=== PATIENT | female | born 1950 | race Caucasian/White ===

== ENCOUNTER → 2019-12-02 14:07 | Outpatient (CLI) | payer MEDICARE, SELFPAY ==
--- NOTE | ~2019-12-02 | DEXA_ITS ---
Bone Density Report Name: Fanny Greer Age: 69 Sex: Female Ethnicity: White Date of : 1950 Indication: osteopenia; monitoring treatment; prior fracture; postmenopausal Referring Provider: BETO, CHARLES Study: Bone densitometry was performed. Exam Date: December 02, 2019 Accession number: [id number] Bone Density: Region BMD T-score Z-score Classification AP Spine (L1-L4) 0.855 -1.7 0.3 Osteopenia Femoral Neck (Left) 0.681 -1.5 0.3 Osteopenia Total Hip (Left) 0.861 -0.7 0.8 Normal Femoral Neck (Right) 0.655 -1.7 0.0 Osteopenia Total Hip (Right) 0.881 -0.5 1.0 Normal Total Hip Mean 0.871 -0.6 0.9 Normal World Health Organization criteria for BMD impression classify patients as: Normal (T-score at or above -1.0), Osteopenia (T-score between -1.0 and -2.5), or Osteoporosis (T-score at or below -2.5). 10-year Fracture Risk: FRAX not reported because: Treated for osteoporosis Previous Exams: Region Exam Age BMD T-score BMD Change BMD Change Date g/cm2 vs Baseline vs Previous AP Spine(L1-L4) 12/02/2019 69 0.855 -1.7 -0.004 -0.001 11/13/2017 67 0.857 -1.7 -0.003 -0.003 11/02/2015 65 0.859 -1.7 Total Hip(Left) 12/02/2019 69 0.861 -0.7 0.035* 0.018 11/13/2017 67 0.843 -0.8 0.017 0.017 11/02/2015 65 0.826 -1.0 Total Hip(Right) 12/02/2019 69 0.881 -0.5 0.028* 0.008 11/13/2017 67 0.873 -0.6 0.020 0.020 11/02/2015 65 0.852 -0.7 *Denotes significance at 95% confidence level, LSC for AP Spine = 0.022 g/cm2, LSC for Total Hip = 0.027 g/cm2 Clinical Information Provided by Patient: Has had a low trauma fracture Is being treated for osteoporosis Has used the following medications: Fosamax (i.e. alendronate), Vitamin D, Calcium Patient maximum height was 62 Menopause Age: 45 Drinks caffeinated beverages Onset of menses at age 12 Number of children 2 Impression: The patient has low bone mass, based on the Total Spine T-score. The patient has risk factors, including: previous fracture. No significant bone loss was observed. Discussion: PATIENT UNDER TREATMENT WITH NO SIGNIFICANT BMD LOSS SINCE LAST EXAM. In an untreated patient, BMD typically declines with age. A lack of decline or gain is usually a sign that treatment is efficacious and fracture risk is reduced. It is important to ask patients
--- NOTE | ~2019-12-02 | MM_ITS ---
EXAMINATION: MM screening ailin BI w franchesca HISTORY: Screening mammogram TECHNIQUE: Craniocaudal and mediolateral oblique 3-D tomosynthesis images were obtained and synthetic 2-D images were generated. CAD analysis was submitted and interpreted. COMPARISON: No prior mammogram is available for comparison at this institution. BREAST PARENCHYMAL COMPOSITION: FINDINGS: There is a 1 cm mass suggested in the upper mid right breast. Diagnostic right mammogram an d right breast ultrasound examination are recommended. Bilateral benign calcifications are noted. Other than the suspected upper mid right breast mass, there is no evidence of suspicious mass, calcif ication, or architectural distortion to suggest malignancy in either breast. There has been no suspic ious interval change. IMPRESSION: 1. Suspected 1 cm mass in upper mid right breast 2. Diagnostic right mammogram and right breast ultrasound examination are recommended. BI-RADS Category 0: Incomplete: Needs additional imaging evaluation. Reviewed, dictated and finalized at location A. ER CONSULTANT IMPRESSION: 1. Suspected 1 cm mass in upper mid right breast 2. Diagnostic right mammogram and right breast ultrasound examination are recom mended. BI-RADS Category 0: Incomplete: Needs additional imaging evaluation.
== END ==
PROVIDERS: PCP Family Medicine; Visit Provider Nurse Practitioner
DX: Z12.31 Encounter for screening mammogram for malignant neoplasm of breast (principal); M85.88 Other specified disorders of bone density and structure, other site; N63.12 Unspecified lump in the right breast, upper inner quadrant
CPT/HCPCS: 77063; 77067; 77080

== ENCOUNTER → 2019-12-16 08:58 | Outpatient (CLI) | payer MEDICARE, SELFPAY ==
--- NOTE | ~2019-12-16 | MMUS_ITS ---
EXAMINATION: MM diagnostic mammo unilat RT, US breast RT limited HISTORY: 1 cm mass suggested in the upper mid right breast on 12/02/2019 screening mammogram TECHNIQUE: Additional 3-D tomosynthesis images of the right breast were performed and synthetic 2-D i mages were generated. CAD analysis was submitted and interpreted. High resolution upper inner and upp er outer right breast ultrasound was performed. COMPARISON: 12/02/2019 bilateral digital screening mammogram FINDINGS: MAMMOGRAPHIC FINDINGS: There is heterogeneous stroma in the upper mid right breast but no definite reproducible mass or any architectural distortion or any malignant calcification, skin thickening or retraction is evident. ULTRASOUND: There is no suspicious mass or shadowing, cyst or other significant sonographic finding in the upper half of the right breast. IMPRESSION: 1. No mammographic evidence of malignancy 2. Routine mammographic screening is recommended. BI-RADS Category 1: Negative Reviewed, dictated and finalized at location A. R HELPER IMPRESSION: 1. No mammographic evidence of malignancy 2. Routine mammographic screening is recommended. BI-RADS Category 1: Negative
== END ==
PROVIDERS: PCP Family Medicine; Visit Provider Obstetrics & Gynecology Gynecology
DX: R92.8 Other abnormal and inconclusive findings on diagnostic imaging of breast (principal)
CPT/HCPCS: 76642; 77065

== ENCOUNTER 2020-03-12 09:31 | Outpatient (CLI) | payer MEDICARE, SELFPAY ==
--- NOTE | ~2020-03-12 | US_ITS ---
EXAMINATION: US carotid duplex BI DATE: 03/12/2020 10:08 INDICATION: Carotid bruit. History of subclavian artery stenosis. TECHNIQUE: Grayscale, color Doppler, and pulsed Doppler images of the cervical carotid arteries were obtained. The degree of vessel stenosis is placed in one of the following categories: normal, <50%, 5 0-69%, >=70% but less than near-occlusion, near-occlusion, or total occlusion. Note that percent sten osis relative to normal distal artery lumen diameter is indirectly measured from velocity measurement s as described by Pradip, et al. Radiology 2003; 229:340-346. Notes: Normal: Peak systolic velocity <125 centimeters/sec and no plaque <50%. Peak systolic velocity <125 ( EDV <40; ICA/CCA PSV ratio <2.0; used these factors only a tandem lesions or low cardiac output or co ntralateral disease) 50-69 %: PSV 125-230 (EDV 40-100; ratio 2-4) >= 70% but less than near occlusion: PSV greater than 230 (EDV > 100; ratio> 4.0) Near Occlusion: PSV that is variable; markedly narrowed lumen Occlusion: Absent flow on color/spectral Doppler and no lumen on valles scale. COMPARISON: Ultrasound dated 03/30/2018 FINDINGS: RIGHT: The right common carotid artery (CCA) peak systolic velocity (PSV) is 89 cm/s. The right internal car otid artery (ICA) PSV is 68 cm/s. The right ICA end-diastolic velocity (EDV) is 21 cm/s. The right IC A/CCA PSV ratio is 0.76. The external carotid artery (ECA) PSV is 73 cm/s. There is antegrade flow in the right vertebral artery. LEFT: The left CCA PSV is 85 cm/s. The left ICA PSV is 62 cm/s. The left ICA EDV is 22 cm/s. The left ICA/C CA PSV ratio is 0.74. The ECA PSV is 81 cm/s. There is too and fro flow in the left vertebral artery . IMPRESSION: 1. Less than 50% stenosis in the right internal carotid artery by sonographic criteria. 2. Less than 50% stenosis in the left internal carotid artery by sonographic criteria. 3: To-and-fro flow in the left vertebral artery which can be associated with subclavian steal syndrom e. Reviewed, dictated and finalized at location A. IMPRESSION: 1. Less than 50% stenosis in the right internal carotid artery by sonographic c riteria. 2. Less than 50% stenosis in the left internal carotid artery by sonographic cr iteria. 3: To-and-fro flow in the left vertebral artery which can be associated with smalls bclavian steal syndrome.
== END 2020-03-12 09:32 | disposition home or self-care (01) ==
LOC: ANHIMG 09:34
PROVIDERS: PCP Family Medicine; Visit Provider Internal Medicine Cardiovascular Disease
DX: I73.9 Peripheral vascular disease, unspecified (principal); I77.1 Stricture of artery; R09.89 Other specified symptoms and signs involving the circulatory and respiratory systems; I65.23 Occlusion and stenosis of bilateral carotid arteries
CPT/HCPCS: 93880

== ENCOUNTER → 2021-02-18 14:58 | Outpatient (CLI) | payer MEDICARE, SELFPAY ==
--- NOTE | ~2021-02-18 | MM_ITS ---
EXAMINATION: MM screening [facility] BI w franchesca HISTORY: Screening TECHNIQUE: Craniocaudal and mediolateral oblique 3-D tomosynthesis images were obtained and synthetic 2-D images were generated. CAD analysis was submitted and interpreted. COMPARISON: Comparison to multiple prior studies sequentially, with oldest reviewed study dated 06/2018. BREAST PARENCHYMAL COMPOSITION: There are scattered areas of fibroglandular density. FINDINGS: There is no evidence of suspicious mass, calcification, or architectural distortion to sugg est malignancy in either breast. There has been no suspicious interval change. IMPRESSION: 1. No mammographic evidence of malignancy. 2. Recommend routine screening mammography in one year. BI-RADS Category 1: Negative Reviewed, dictated and finalized at location A.
== END ==
PROVIDERS: Visit Provider Nurse Practitioner
DX: Z12.31 Encounter for screening mammogram for malignant neoplasm of breast (principal)
CPT/HCPCS: 77063; 77067

== ENCOUNTER → 2021-03-13 01:46 | Outpatient (CLI) | payer MEDICARE, SELFPAY ==
[2021-03-14 14:52] LABS: SARS-CoV-2 RNA PCR Negative
== END ==
PROVIDERS: Visit Provider Internal Medicine Gastroenterology
DX: Z01.812 Encounter for preprocedural laboratory examination (principal); Z20.822 Contact with and (suspected) exposure to COVID-19
CPT/HCPCS: C9803; U0003; U0005

== ENCOUNTER 2021-03-16 01:59 | Day surgery (SDC) | payer MEDICARE, SELFPAY ==
[2021-03-05 13:46] VITALS: BMI 26.2
[2021-03-16 11:11] VITALS: BP 135/62; PULSE 72; RESP 16; TEMP 36.7; O2SAT 98; BMI 26.2
[2021-03-16] MEDS: LACTATED RINGERS 1,000 ML 150 ML IV CONT (11:14)
--- NOTE | 2021-03-16 11:21 | WPDANESEPPF ---
Anes - Initial Pre Proc Eval Procedure: Operation Date: 03/16/21 13:00 Proposed Procedures p Esophagogastroduodenoscopy & Screening Colonoscopy - Ronald Condon MD Date/Time: 03/16/21 11:21 Surgeon: Ronald Condon MD Pre Op Diagnosis: neoplasm screening, GERD Patient Data Age: 70 Gender: F Height: 1.57 m Weight: 65.2 kg Last Vital Signs Temp 36.7 C 03/16/21 11:11 Pulse 72 03/16/21 11:11 Resp 16 03/16/21 11:11 BP 135/62 03/16/21 11:11 Pulse Ox 98 03/16/21 11:11 Allergies Allergy/AdvReac Type Severity Reaction Status Date / Time Penicillins Allergy Mild rash and Verified 03/16/21 11:10 swelling Sulfa (Sulfonamide Allergy Mild rash and Verified 03/16/21 11:10 Antibiotics) swelling sulfamethizole Allergy Mild Rash Verified 03/16/21 11:10 trimethoprim Allergy Mild Rash Verified 03/16/21 11:10 Home Medications Medication Instructions Recorded Confirmed Type aspirin 81 mg tablet,delayed 81 mg PO DAILY 09/10/19 03/05/21 History release atorvastatin 40 mg tablet 40 mg PO DAILY 09/10/19 03/05/21 History calcium carbonate 500 mg calcium 500 mg PO DAILY 09/10/19 03/05/21 History (1,250 mg) tablet carvedilol 3.125 mg tablet 3.125 mg PO Q12H 09/10/19 03/05/21 History cholecalciferol (vitamin D3) 125 5,000 unit PO DAILY 09/10/19 03/05/21 History mcg (5,000 unit) tablet montelukast 10 mg tablet 10 mg PO QPM #90 tablet 09/10/19 03/05/21 Rx fluoxetine 20 mg capsule 20 mg PO DAILY #90 cap 10/06/20 03/05/21 Rx ibandronate 150 mg tablet 150 mg PO MONTHLY 10/06/20 03/05/21 History famotidine [Pepcid] 40 mg PO DAILY 03/05/21 03/05/21 History Patient hx anesthesia problems: none Family hx anesthesia problems: none PMFSH Past Medical History Medical History Age-related nuclear cataract of both eyes CAD in [place] artery Choking GERD (gastroesophageal reflux disease) History of MA (myocardial infarction) 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 Mixed hyperlipidemia PAD (peripheral artery disease) Stenosis of left subclavian artery Surgical History Surgical History Stented coronary artery Family History Family History Father Hypertension Family history of chronic obstructive pulmonary disease Sibling Hypertension Family history of arthritis Family history of heart disease in male family member before age 55 Mother Acute myocardial infarction Social History Social History (Updated 10/06/20 @ 09:14 by Linette Winchester) Social History: Smoking status: Never smoker Second hand tobacco smoke exposure: No Alcohol intake: current Substance use: never Substance use type: does not use Living arrangements: with family Gender identity (if verbalized by the patient): Female Sexual Orientation (if Verbalized by the Patient): Straight or Heterosexual Spiritual care concerns: No Anes - Eval Final PreProcedure Day of Procedure 03/16/21 11:21 Patient weight: overweight Heart: regular rate and rhythm Lungs: clear to auscultation and normal air movement Airway: Mallampati scale Neurological: alert and oriented Last oral intake: >/= 8 hours ASA classification: III Emergent: no Anesthetic plan: proceed Anesthesia type and monitoring: general GIVS and standard monitoring Informed Consent: The patient's anesthetic plan and its attendant risks and benefits were discussed with the patient/family/POA. Questions were solicited and answers provided to the satisfaction of the patient/family/POA.
--- NOTE | 2021-03-16 11:28 | PM.HPGS ---
History of Present Illness History of Present Illness Consent: Risks, benefits, and alternatives have been discussed and questions answered. Patient agrees to proceed with procedure. Chief complaint: neoplasm screening, GERD Narrative: Fanny Greer is a 70 year old female with gerdi, also due to have colonoscopy Review of Systems Constitutional: Constitutional: Denies headache(s) and Denies weakness Eyes: Eyes: Denies blurry vision ENT: Reports Normal hearing present, Denies headache(s) and Denies neck pain Cardiovascular: Cardiovascular: Denies chest pain and Denies dyspnea Respiratory: Respiratory: Denies dyspnea Gastrointestinal: Gastrointestinal: Reports no additional gastrointestinal complaints Genitourinary: Genitourinary: Denies dysuria Musculoskeletal: Musculoskeletal: Denies neck pain Integumentary/Breasts: Skin/Breast: Denies dry skin Neurologic: Reports Normal hearing present, Denies headache(s) and Denies weakness Psychiatric: Psychiatric: Denies anxiety Endocrine: Endocrine: Denies change in body appearance Hematologic/Lymphatic: Hematologic/Lymphatic: Denies easy bleeding Allergic/Immunologic: Allergic/Immunologic: Denies urticaria PMFSH Past Medical History Medical History Age-related nuclear cataract of both eyes CAD in [place] artery Choking GERD (gastroesophageal reflux disease) History of [place] (myocardial infarction) FDC current use of antithrombotics/antiplatelets Mixed hyperlipidemia PAD (peripheral artery disease) Stenosis of left subclavian artery Surgical History Surgical History Stented coronary artery Family History Family History Father Hypertension Family history of chronic obstructive pulmonary disease Sibling Hypertension Family history of arthritis Family history of heart disease in male family member before age 55 Mother Acute myocardial infarction Social History Social History (Updated 10/06/20 @ 09:14 by Linette Winchester) Social History: Smoking status: Never smoker Second hand tobacco smoke exposure: No Alcohol intake: current Substance use: never Substance use type: does not use Living arrangements: with family Gender identity (if verbalized by the patient): Female Sexual Orientation (if Verbalized by the Patient): Straight or Heterosexual Spiritual care concerns: No Meds Home Medications and Allergies Home Medications Medication Instructions Recorded Confirmed Type aspirin 81 mg tablet,delayed 81 mg PO DAILY 09/10/19 03/05/21 History release atorvastatin 40 mg tablet 40 mg PO DAILY 09/10/19 03/05/21 History calcium carbonate 500 mg calcium 500 mg PO DAILY 09/10/19 03/05/21 History (1,250 mg) tablet carvedilol 3.125 mg tablet 3.125 mg PO Q12H 09/10/19 03/05/21 History cholecalciferol (vitamin D3) 125 5,000 unit PO DAILY 09/10/19 03/05/21 History mcg (5,000 unit) tablet montelukast 10 mg tablet 10 mg PO QPM #90 tablet 09/10/19 03/05/21 Rx fluoxetine 20 mg capsule 20 mg PO DAILY #90 cap 10/06/20 03/05/21 Rx ibandronate 150 mg tablet 150 mg PO MONTHLY 10/06/20 03/05/21 History famotidine [Pepcid] 40 mg PO DAILY 03/05/21 03/05/21 History Allergies Allergy/AdvReac Type Severity Reaction Status Date / Time Penicillins Allergy Mild rash and Verified 03/16/21 11:10 swelling Sulfa (Sulfonamide Allergy Mild rash and Verified 03/16/21 11:10 Antibiotics) swelling sulfamethizole Allergy Mild Rash Verified 03/16/21 11:10 trimethoprim Allergy Mild Rash Verified 03/16/21 11:10 Vital Signs Vital Signs - 24 hr 03/16/21 11:11 Temperature 98.1 F Pulse Rate 72 Respiratory Rate 16 Blood Pressure 135/62 Pulse Oximetry 98 Exam Const: General: comfortable and no acute distress HENMT: General nose exam: Normal nares present Eyes
[2021-03-16 11:57] VITALS: BP 107/62; PULSE 72; RESP 16; O2SAT 97
[2021-03-16 12:07] VITALS: BP 103/56; PULSE 66; RESP 16; O2SAT 100
[2021-03-16 12:14] VITALS: BP 114/67; PULSE 66; RESP 16; O2SAT 100
== END 2021-03-16 12:25 | disposition home or self-care (01) ==
PROVIDERS: PCP Family Medicine; Visit Provider Internal Medicine Gastroenterology
PROC: 0DJ08ZZ Inspection of Upper Intestinal Tract, Via Natural or Artificial Opening Endoscopic (ICD-10-PCS; CPT 43235; principal; 2021-03-16 13:00)
DX: Z12.11 Encounter for screening for malignant neoplasm of colon (principal); D12.2 Benign neoplasm of ascending colon; K64.8 Other hemorrhoids; K57.30 Diverticulosis of large intestine without perforation or abscess without bleeding; K21.00 Gastro-esophageal reflux disease with esophagitis, without bleeding; K29.50 Unspecified chronic gastritis without bleeding; E78.2 Mixed hyperlipidemia; I25.2 Old myocardial infarction; I73.9 Peripheral vascular disease, unspecified; K21.9 Gastro-esophageal reflux disease without esophagitis; I25.10 Atherosclerotic heart disease of native coronary artery without angina pectoris; Z95.5 Presence of coronary angioplasty implant and graft; Z79.02 Long term (current) use of antithrombotics/antiplatelets; Z79.82 Long term (current) use of aspirin
CPT/HCPCS: 45385; 43239; 87081; 88305; J2001; J2704; J7120

== ENCOUNTER 2021-06-01 10:22 | Outpatient (CLI) | payer MEDICARE, SELFPAY ==
--- NOTE | ~2021-06-01 | US_ITS ---
EXAMINATION: US carotid duplex BI DATE: 06/01/2021 11:02 INDICATION: Left carotid bruit. Previous endarterectomy. TECHNIQUE: Grayscale, color Doppler, and pulsed Doppler images of the cervical carotid arteries were obtained. The degree of vessel stenosis is placed in one of the following categories: normal, <50%, 5 0-69%, >=70% but less than near-occlusion, near-occlusion, or total occlusion. Note that percent sten osis relative to normal distal artery lumen diameter is indirectly measured from velocity measurement s as described by Pradip, et al. Radiology 2003; 229:340-346. Notes: Normal: Peak systolic velocity <125 centimeters/sec and no plaque <50%. Peak systolic velocity <125 ( EDV <40; ICA/CCA PSV ratio <2.0; used these factors only a tandem lesions or low cardiac output or co ntralateral disease) 50-69 %: PSV 125-230 (EDV 40-100; ratio 2-4) >= 70% but less than near occlusion: PSV greater than 230 (EDV > 100; ratio> 4.0) Near Occlusion: PSV that is variable; markedly narrowed lumen Occlusion: Absent flow on color/spectral Doppler and no lumen on valles scale. COMPARISON: None. FINDINGS: RIGHT: The right common carotid artery (CCA) peak systolic velocity (PSV) is 116 cm/s. The right internal ca rotid artery (ICA) PSV is 101 cm/s. The right ICA end-diastolic velocity (EDV) is 35 cm/s. The right ICA/CCA PSV ratio is 0.9. The external carotid artery (ECA) PSV is 101 cm/s. There is antegrade flow in the right vertebral artery. LEFT: The left CCA PSV is 95 cm/s. The left ICA PSV is 87 cm/s. The left ICA EDV is 28 cm/s. The left ICA/C CA PSV ratio is 0.9. The ECA PSV is 101 cm/s. There is antegrade flow in the left vertebral artery. IMPRESSION: 1. Less than 50% stenosis in the right internal carotid artery by sonographic criteria. 2. Less than 50% stenosis in the left internal carotid artery by sonographic criteria. Reviewed, dictated and finalized at location A. IMPRESSION: 1. Less than 50% stenosis in the right internal carotid artery by sonographic c jodyeria. 2. Less than 50% stenosis in the left internal carotid artery by sonographic cr annamarie.
== END 2021-06-01 10:23 | disposition home or self-care (01) ==
LOC: ANHIMG 10:28
PROVIDERS: PCP Family Medicine; Visit Provider Internal Medicine Cardiovascular Disease
DX: I65.23 Occlusion and stenosis of bilateral carotid arteries (principal)
CPT/HCPCS: 93880

== ENCOUNTER 2021-06-16 15:18 | Outpatient (CLI) | payer MEDICARE, SELFPAY ==
--- NOTE | ~2021-06-16 | XR_ITS ---
EXAMINATION: XR wrist LT min 3V DATE: 06/16/2021 15:41 INDICATION: Old ORIF at the left wrist presenting with finger numbness. TECHNIQUE: Posteroanterior, ulnar deviation, oblique, and lateral views of the left wrist were obtain ed. COMPARISON: none FINDINGS: Old healed fracture of the distal left radius with wires and dorsal plate and screw fixation. The demond te and screws obscures the region of the proximal carpal row. There is advanced osteoarthritis at the wrist joint with suggestion of loss of bone stock at the proximal pole of the scaphoid. Subarticular cystic changes are seen at the remodeled distal ulna. Mild to moderate osteoarthritis at the triscap he and first carpal metacarpal joints. IMPRESSION: 1. 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 Reviewed, dictated and finalized at location A. IMPRESSION: 1. 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
== END 2021-06-16 15:19 | disposition home or self-care (01) ==
LOC: ANHIMG 15:25
PROVIDERS: PCP Family Medicine; Visit Provider Plastic Surgery
DX: Z87.310 Personal history of (healed) osteoporosis fracture (principal); M19.032 Primary osteoarthritis, left wrist
CPT/HCPCS: 73110

== ENCOUNTER 2021-08-19 10:13 | Outpatient (CLI) | payer MEDICARE, SELFPAY ==
--- NOTE | 2021-08-19 12:00 | NEURO_ITS ---
Impression: # Complains of left hand numbness. History of wrist surgery in the past. # Left Carpal Tunnel Syndrome. # No ulnar neuropathy. # Needle/EMG exam not requested. Nerve Conduction Studies Anti Sensory Summary Table Stim Site NR Peak (ms) P-T Amp (?V) Site1 Site2 Delta-P (ms) Dist (cm) Aman (m/s) Left Median Anti Sensory (2-3nd Digit) Wrist 4.0 39.8 Wrist 2-3nd Digit 4.0 14.0 35 Wrist 4.4 33.1 Wrist 2-3nd Digit 4.0 14.0 35 Left Radial Anti Sensory (Base 1st Digit) Wrist 1.8 39.4 Wrist Base 1st Digit 1.8 0.0 Left Ulnar Anti Sensory (5th Digit) Wrist 2.1 46.2 Wrist 5th Digit 2.1 14.0 67 Motor Summary Table Stim Site NR Onset (ms) O-P Amp (mV) Site1 Site2 Delta-0 (ms) Dist (cm) Aman (m/s) Left Median Motor (Abd Poll Brev) Wrist 4.6 3.7 Elbow Wrist 4.2 27.0 64 Elbow 8.8 4.1 Left Ulnar Motor (Abd Dig Minimi) Wrist 2.3 4.3 A Elbow Wrist 4.7 27.0 57 A Elbow 7.0 3.1 F Wave Studies NR F-Lat (ms) L-R F-Lat (ms) Left Median (Mrkrs) (Abd Poll Brev) 29.81 Left Ulnar (Mrkrs) (Abd Dig Min) 28.67 MTDD
== END 2021-08-19 10:14 | disposition home or self-care (01) ==
LOC: ANHNEURO 10:15
PROVIDERS: PCP Family Medicine; Visit Provider Plastic Surgery
DX: R20.2 Paresthesia of skin (principal); R20.8 Other disturbances of skin sensation; G56.02 Carpal tunnel syndrome, left upper limb
CPT/HCPCS: 95909

== ENCOUNTER 2021-09-08 00:57 | Day surgery (SDC) | payer MEDICARE, SELFPAY ==
[2021-09-02 14:33] VITALS: BMI 26.9
--- NOTE | 2021-09-08 07:30 | WPDHPUPDATE1 ---
History and Physical Update Update Date/Time: 09/08/21 07:30 History and Physical has been reviewed, including an updated exam of the patient. There are NO changes in the patient's condition. Risks, benefits, and alternatives have been discussed and questions answered. Patient agrees to proceed with procedure.
--- NOTE | 2021-09-08 09:03 | WPDANESEPPF ---
Anes - Initial Pre Proc Eval Procedure: Operation Date: 09/08/21 10:30 Proposed Procedures p Left Open Carpal Tunnel Release - Darron Benavides MD Date/Time: 09/08/21 09:03 Surgeon: Darron Benavides MD Pre Op Diagnosis: left carpal tunnel syndrome Patient Data Age: 71 Gender: F Height: 1.57 m Weight: 66.7 kg Allergies Allergy/AdvReac Type Severity Reaction Status Date / Time Penicillins Allergy Mild rash and Verified 09/02/21 14:16 swelling Sulfa (Sulfonamide Allergy Mild rash and Verified 09/02/21 14:16 Antibiotics) swelling sulfamethizole Allergy Mild Rash Verified 09/02/21 14:16 trimethoprim Allergy Mild Rash Verified 09/02/21 14:16 Home Medications Medication Instructions Recorded Confirmed Type aspirin 81 mg tablet,delayed 81 mg PO DAILY 09/10/19 09/02/21 History release atorvastatin 40 mg tablet 40 mg PO DAILY 09/10/19 09/02/21 History carvedilol 3.125 mg tablet 3.125 mg PO Q12H 09/10/19 09/02/21 History cholecalciferol (vitamin D3) 125 5,000 unit PO DAILY 09/10/19 09/02/21 History mcg (5,000 unit) tablet ibandronate 150 mg tablet 150 mg PO MONTHLY 10/06/20 09/02/21 History omeprazole 40 mg capsule,delayed 40 mg PO DAILY #30 cap 03/16/21 09/02/21 Rx release cetirizine [Zyrtec] 10 mg PO QPM 09/02/21 09/02/21 History Patient hx anesthesia problems: none Family hx anesthesia problems: none Results Review: All pre-operative results and documents have been reviewed as part of the pre-operative evaluation. [facility] Past Medical History Medical History Age-related nuclear cataract of both eyes CAD in [place] artery Choking GERD (gastroesophageal reflux disease) History of [place] (myocardial infarction) buttermaker current use of antithrombotics/antiplatelets Mixed hyperlipidemia PAD (peripheral artery disease) Stenosis of left subclavian artery Surgical History Surgical History Stented coronary artery Family History Family History Father Hypertension Family history of chronic obstructive pulmonary disease Sibling Hypertension Family history of arthritis Family history of heart disease in male family member before age 55 Mother Acute myocardial infarction Social History Social History Social History: Smoking status: Never smoker Second hand tobacco smoke exposure: No Alcohol intake: current Alcohol use details: Rarely Substance use: never Substance use type: does not use Living arrangements: with family Gender identity (if verbalized by the patient): Female Sexual Orientation (if Verbalized by the Patient): Straight or Heterosexual Spiritual care concerns: No Anes - Eval Final PreProcedure Day of Procedure 09/08/21 09:03 Patient weight: overweight Heart: regular rate and rhythm Lungs: clear to auscultation Airway: Mallampati scale class II Neurological: alert and oriented Last oral intake: >/= 8 hours ASA classification: III Emergent: no Anesthetic plan: proceed Anesthesia type and monitoring: general GIVS and standard monitoring Results Review: All pre-operative results and documents have been reviewed as part of the pre-operative evaluation. Informed Consent: The patient's anesthetic plan and its attendant risks and benefits were discussed with the patient/family/POA. Questions were solicited and answers provided to the satisfaction of the patient/family/POA.
[2021-09-08 09:14] VITALS: BP 138/79; PULSE 75; RESP 16; TEMP 36.3; O2SAT 98
[2021-09-08] MEDS: LACTATED RINGERS 1,000 ML 30 ML IV CONT (09:15)
--- NOTE | 2021-09-08 10:20 | WPDHPUPDATE1 ---
History and Physical Update Update Date/Time: 09/08/21 10:20 History and Physical has been reviewed, including an updated exam of the patient. There are NO changes in the patient's condition. Risks, benefits, and alternatives have been discussed and questions answered. Patient agrees to proceed with procedure.
--- NOTE | 2021-09-08 10:30 | SUR.PREOP ---
pt glasses were forgotten in her room. pt glasses were placed in her bag in the locker in a glasses case.
[2021-09-08] MEDS: LIDO 1%/EPINEPHRINE 1:100,000 50 ML VIAL 10 ML INFILTRATE (10:50)
[2021-09-08 11:09] VITALS: BP 144/79; PULSE 73; RESP 16; O2SAT 98
--- NOTE | 2021-09-08 11:14 | W.PM.PROC2 ---
Procedure Note - Detailed Date of Procedure 09/08/21 Pre-op Diagnosis left carpal tunnel syndrome Post-op Diagnosis same Procedure Performed Extended neurolysis left median nerve at the wrist Surgeon Darron Benavides MD Anesthesia general Indications Left carpal tunnel syndrome with history of left distal radius fracture and carpal osteoarthritis Findings Classic findings of left carpal tunnel syndrome as well as dorsal compression on the median nerve of the distal forearm due to carpal arthritis and synovitis. Description of Procedure The left volar wrist was marked on the patient in the holding area. The patient asked about the volar distal forearm mass again. Our plan is to explore this if necessary to determine its role the compression neuropathy. The patient was taken to the operating room and placed supine on the operating table. A time-out was held and confirmed. She was given general IV sedation. The extremity was prepped and draped in usual fashion. The extremity was exsanguinated and the tourniquet inflated to 250 mmHg. The incision was marked for the usual carpal tunnel release as well as zigzag and curvilinear marking for more proximal exploration. This area was infiltrated with 1% lidocaine with epinephrine. The tourniquet inflated 250 mmHg. The palmar incision was made and dissection was carried through the subcutaneous tissue to the palmar fascia. This was incised. The flexor retinaculum was exposed and that also was incised with a 15 blade. The ligament was released distally and proximally with scissors. At that point it was clear that the volar, sub-tendines mass proximal to the retinaculum did cause anterior displacement of the nerve and tendons. The palmar carpal ligament was therefore released to decrease proximal compression over this area. No deeper dissection was done There was no obvious tenosynovitis. The wound was closed in simple fashion with 5-0 nylon suture. The usual bandage was applied. She was discharged home with instructions in wound care and follow-up. A prescription for hydrocodone #7 was sent to her pharmacy
[2021-09-08 11:30] VITALS: BP 165/68; PULSE 62; RESP 16
[2021-09-08 12:00] VITALS: BP 143/72; PULSE 60; RESP 16
== END 2021-09-08 12:10 | disposition home or self-care (01) ==
PROVIDERS: PCP Family Medicine; Visit Provider Plastic Surgery
PROC: (CPT 64721; principal; 2021-09-08 10:30)
DX: G56.02 Carpal tunnel syndrome, left upper limb (principal); M19.032 Primary osteoarthritis, left wrist; M65.842 Other synovitis and tenosynovitis, left hand; I25.10 Atherosclerotic heart disease of native coronary artery without angina pectoris; I25.2 Old myocardial infarction; K21.9 Gastro-esophageal reflux disease without esophagitis; E78.2 Mixed hyperlipidemia; I73.9 Peripheral vascular disease, unspecified; Z79.02 Long term (current) use of antithrombotics/antiplatelets; Z95.5 Presence of coronary angioplasty implant and graft; Z79.82 Long term (current) use of aspirin; Z87.81 Personal history of (healed) traumatic fracture
CPT/HCPCS: 64721; A9270; J2405; J2704; J3010; J7120

== ENCOUNTER 2021-11-19 09:46 | Emergency (ER) | payer MEDICARE, SELFPAY ==
--- NOTE | ~2021-11-19 | XR_ITS ---
EXAMINATION: XR chest 2V DATE: 11/19/2021 10:58 INDICATION: Presyncope. TECHNIQUE: Frontal and lateral views of the chest were obtained. COMPARISON: Chest 2 views 05/25/2009, chest CT 10/24/2018 FINDINGS: There is mild scarring at the lung apices. Calcified right lung nodules and calcified right hilar and mediastinal lymph nodes are consistent with old granulomatous disease. No pleural effusion or pneumothorax. The heart size is normal. There is a stent in left subclavian artery. IMPRESSION: 1. Mild scarring at the lung apices. Reviewed, dictated and finalized at location B. CLING MANAGER
--- NOTE | ~2021-11-19 | XR_ITS ---
EXAMINATION: XR hip RT min 3V w AP pelvis DATE: 11/19/2021 10:58 INDICATION: Right hip pain. Fall. TECHNIQUE: An anteroposterior view of the pelvis and 3 views of right hip were obtained. COMPARISON: None. FINDINGS: There is 4 degrees dextrocurvature of lumbar spine. No fracture. There is moderate lumbar s pondylosis. There is mild right hip osteoarthritis. IMPRESSION: 1. Mild right hip osteoarthritis. Reviewed, dictated and finalized at location B. MANAGER RN
--- NOTE | ~2021-11-19 | XR_ITS ---
EXAMINATION: XR lumbar spine 2-3V DATE: 11/19/2021 10:58 INDICATION: Low back pain. TECHNIQUE: 3 views of lumbar spine were obtained. COMPARISON: None. FINDINGS: There is 7 degrees dextrocurvature of lumbar spine. Vertebral body heights are normal. Ther e is moderately decreased disc height at L4-L5 with endplate remodeling. There is multilevel mild to moderate facet joint osteoarthritis. IMPRESSION: 1. Moderate lumbar spondylosis. Reviewed, dictated and finalized at location B. TH INFORMATION CLERK
[2021-11-19 09:50] VITALS: BP 145/83; PULSE 72; RESP 16; TEMP 36.6; O2SAT 99
--- NOTE | 2021-11-19 10:34 | ECG_ITS ---
Measurements Intervals [place] Rate: 63 P: 71 RI: 170 QRS: 8 QRSD: 97 T: 7 QT: 410 QTc: 422 Interpretive Statements SINUS RHYTHM CONSIDER INFERIOR INFARCT, AGE INDETERMINATE BASELINE ARTIFACT- I, III, AVR, AVL, AVF, V1-V4 ABNORMAL ECG Electronically Signed On 11-19-2021 11:10:56 SKY CAP by Jefferson Deleon D.O.
--- NOTE | 2021-11-19 10:37 | ED.LOWEXIN ---
HPI - Extremity Injury (Lower) General Chief Complaint: Extremity Injury, Lower Stated Complaint: Right Hip Pain with Syncopal Episodes Time Seen by Provider: 11/19/21 10:15 Source: patient Mode of arrival: wheelchair Limitations: no limitations History of Present Illness HPI Narrative: This is a 71 year old female that presents to the ER for right sided low back pain present over the last 3 days. No known injury or trauma. Reports the pain has started to radiate down the right leg. The pain is worse with certain movements and when she lies on the affected side. Does report history of intermittent problems with her back over the last couple years. She has not seen anything for this issue, does not have a diagnosis. 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 The pain got so bad that she started to feel lightheaded and sweaty. She laid down so she would not pass out. She has not been taking anything for pain. Denies fever, chest pain, shortness of breath, lower extremity edema, saddle anesthesia, or bowel/bladder incontinence. Related Data Home Medications Medication Instructions Recorded Confirmed aspirin 81 mg tablet,delayed 81 mg PO DAILY 09/10/19 10/07/21 release atorvastatin 40 mg tablet 40 mg PO DAILY 09/10/19 10/07/21 carvedilol 3.125 mg tablet 3.125 mg PO Q12H 09/10/19 10/07/21 cholecalciferol (vitamin D3) 125 5,000 unit PO DAILY 09/10/19 10/07/21 mcg (5,000 unit) tablet ibandronate 150 mg tablet 150 mg PO MONTHLY 10/06/20 10/07/21 Zyrtec 10 mg PO QPM 09/02/21 10/07/21 Allergies Allergy/AdvReac Type Severity Reaction Status Date / Time Penicillins Allergy Mild rash and Verified 10/07/21 09:05 swelling Sulfa (Sulfonamide Allergy Mild rash and Verified 10/07/21 09:05 Antibiotics) swelling sulfamethizole Allergy Mild Rash Verified 10/07/21 09:05 trimethoprim Allergy Mild Rash Verified 10/07/21 09:05 Review of Systems Review of Systems: CONSTITUTIONAL: Denies fever CARDIOVASCULAR: Denies chest pain, or edema. RESPIRATORY: Denies dyspnea. SKIN: Denies rash MUSCULOSKELETAL: Reports back pain, joint pain, and myalgia. NEUROLOGIC: Denies numbness, or weakness. 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 Mixed hyperlipidemia PAD (peripheral artery disease) Stenosis of left subclavian artery Surgical History Surgical History (Updated 10/07/21 @ 23:22 by Jojo Germain MD) History of carpal tunnel release Hx of cataract surgery Hx of colonoscopy 2020, repeat in 5 years Hx of esophagogastroduodenoscopy 2020 Stented coronary artery Family History Family History Father Hypertension Family history of chronic obstructive pulmonary disease Sibling Hypertension Family history of arthritis Family history of heart disease in male family member before age 55 Mother Acute myocardial infarction Social History Social History Social History: Smoking status: Never smoker Second hand tobacco smoke exposure: No Alcohol intake: current Alcohol use details: Rarely Substance use: never Substance use type: does not use Gender identity (if verbalized by the patient): Female Sexual Orientation (if Verbalized by the Patient): Straight or Heterosexual Spiritual care concerns: No Exam Narrative: GENERAL: Well-appearing, well-nourished, and in no acute distress. HEAD: Normocephalic, atraumatic. EYES: EOMI. CHEST: Clear to auscultation. No respiratory distress. No wheezes rales or rhonchi HEART: Reg
[2021-11-19 11:11] LABS: Basophils Absolute Auto 0.1 K/mm3 (0.0-0.1); Eosinophils Absolute Auto 0.2 K/mm3 (0-0.3); Hematocrit 33.6 % (37.0-47.0); Hemoglobin 10.6 g/dL (12.0-15.0); Immature Granulocyte Absolute 0.03 K/mm3 (0.00-0.031); Immature Granulocyte Percent A 0.3 % (0-0.5); Lymphocytes Absolute Auto 1.78 K/mm3 (0.9-3.2); Lymphocytes Percent Auto 17.7 % (18.3-44.2); Mean Corpuscular HGB Conc 31.5 g/dl (32-36); Mean Corpuscular Hemoglobin 26.4 pg (26-34); Mean Corpuscular Volume 83.6 fl (80-100); Mean Platelet Volume 8.5 fl (7.4-10.4); Monocytes Absolute Auto 0.6 K/mm3 (0.1-0.6); Monocytes Percent Auto 5.9 % (2.6-8.5); Neutrophils Absolute Auto 7.3 K/mm3 (1.3-6.7); Neutrophils Percent Auto 73.1 % (45.5-73.1); Platelet Count Result 204 k/mm3 (150-375); Red Blood Count 4.02 M/mm3 (4.2-5.4); Red Cell Distribution Width 14.6 % (11.5-14.5)
[2021-11-19] MEDS: ACETAMINOPHEN 500 MG TABLET 1000 MG PO (11:15)
[2021-11-19] MEDS: KETOROLAC 30 MG/ML VIAL (*BKC) IM (11:15)
[2021-11-19 11:29] LABS: INR 1.1
[2021-11-19 11:30] LABS: Partial Thromboplastin Time 30.4 SECONDS (22.3-36.8)
[2021-11-19 11:35] LABS: Anion Gap 5 mmol/L (8-16); Blood Urea Nitrogen 15 mg/dL (7-17); Calcium 9.6 mg/dL (8.4-10.2); Carbon Dioxide 27 mmol/L (22-30); Chloride 105 mmol/L (98-107); Estimated CRCL calculation 45 ml/min; Estimated Glomerular Filt Rate > 60; Glucose 128 mg/dL (65-110); Potassium 4.4 mmol/L (3.4-5.0); Sodium 137 mmol/L (137-145)
[2021-11-19 11:47] LABS: Troponin I < 0.012 ng/mL (0.000-0.034)
[2021-11-19 12:00] VITALS: BP 139/66; PULSE 71; RESP 19; O2SAT 99
[2021-11-19 13:45] VITALS: BP 127/67; PULSE 65; RESP 20; O2SAT 99
== END 2021-11-19 13:45 | disposition home or self-care (01) ==
PROVIDERS: Physician Assistant; Emergency Provider Emergency Medicine; PCP Family Medicine
DX: M54.41 Lumbago with sciatica, right side (principal); R55 Syncope and collapse; I25.10 Atherosclerotic heart disease of native coronary artery without angina pectoris; K21.9 Gastro-esophageal reflux disease without esophagitis; I25.2 Old myocardial infarction; E78.2 Mixed hyperlipidemia; I73.9 Peripheral vascular disease, unspecified; Z98.49 Cataract extraction status, unspecified eye; Z95.5 Presence of coronary angioplasty implant and graft; Z79.82 Long term (current) use of aspirin; D64.9 Anemia, unspecified; M16.11 Unilateral primary osteoarthritis, right hip; M47.816 Spondylosis without myelopathy or radiculopathy, lumbar region; R94.31 Abnormal electrocardiogram [ECG] [EKG]
CPT/HCPCS: 36415; 71046; 72100; 73502; 80048; 84484; 85025; 85610; 85730; 93005; 96372; 99284; A9270; J1885

== ENCOUNTER 2022-02-09 13:27 | Outpatient (CLI) | payer MEDICARE, SELFPAY ==
--- NOTE | ~2022-02-09 | MR_ITS ---
EXAMINATION: MR lumbar spine wo con DATE: 02/09/2022 14:05 INDICATION: Low back pain, unspecified. TECHNIQUE: Magnetic resonance imaging (MRI) of the lumbar spine was performed without intravenous con trast. Sequences included sagittal T2-weighted FSE, sagittal T2-weighted FS FSE, sagittal T1-weighted FSE, and axial T2-weighted FSE. COMPARISON: Lumbar spine radiographs 11/19/2021 FINDINGS: There is 5 degrees dextrocurvature of thoracolumbar spine. Vertebral body heights are jairon l. There is severely decreased disc height at L4-L5 with endplate remodeling. The distal spinal cord signal intensity is normal. The conus medullaris is at L1. Partially visualized is a 6.1 cm cyst in l eft adnexa. The following disc levels are specifically discussed: L1-L2: The disc is mildly bulging. There is mild bilateral facet joint osteoarthritis. There is no ne ural foraminal stenosis. There is mild central canal stenosis. L2-L3: The disc is mildly bulging. There is mild bilateral facet joint osteoarthritis. There is mild bilateral neural foraminal stenosis. There is no central canal stenosis. L3-L4: The disc is bulging. There is mild bilateral facet joint osteoarthritis. There is mild bilater al neural foraminal stenosis. There is mild central canal stenosis. L4-L5: The disc is bulging. There is moderate left facet joint osteoarthritis. There is moderate righ t and mild left neural foraminal stenosis. There is mild central canal stenosis. L5-S1: The disc is bulging. There is moderate bilateral facet joint osteoarthritis. There is mild tom ateral neural foraminal stenosis. There is mild central canal stenosis. IMPRESSION: 1. Severe lumbar spondylosis. 2. Partially visualized 6.1 cm cyst in left adnexa, probably benign. Pelvis ultrasound is recommended . Reviewed, dictated and finalized at location A. IMPRESSION: 1. Severe lumbar spondylosis. 2. Partially visualized 6.1 cm cyst in left adnexa, probably benign. Pelvis ult rasound is recommended.
== END 2022-02-09 13:28 | disposition home or self-care (01) ==
PROVIDERS: PCP Family Medicine; Visit Provider Nurse Practitioner Gerontology
DX: M47.896 Other spondylosis, lumbar region (principal)
CPT/HCPCS: 72148

== ENCOUNTER 2022-02-24 12:51 | Outpatient (CLI) | payer MEDICARE, SELFPAY ==
--- NOTE | ~2022-02-24 | US_ITS ---
EXAMINATION: US pelvic complete DATE: 02/24/2022 13:38 INDICATION: Pelvic pain. Unspecified condition associated with female genital organs. TECHNIQUE: Multiple transabdominal sonographic images of the pelvis were obtained. COMPARISON: Lumbar spine MRI 02/09/2022 FINDINGS: The uterus measures 6.8 x 4.1 x 2.2 cm. There is no free fluid in the pelvis. The endometrial complex measures 4 mm in thickness. The right ovary is not visualized. The left ovary measures 6.3 x 3.9 x 5 .7 cm. There is vascular flow in left ovary. There is a 5.6 cm cyst in left ovary. IMPRESSION: 1. 5.6 cm cyst in left ovary, likely benign. Pelvis ultrasound is recommended in one year. Reviewed, dictated and finalized at location B. IMPRESSION: 1. 5.6 cm cyst in left ovary, likely benign. Pelvis ultrasound is recommended i n one year.
== END 2022-02-24 12:52 | disposition home or self-care (01) ==
LOC: ANHIMG 12:54
PROVIDERS: PCP Family Medicine; Visit Provider Nurse Practitioner Gerontology
DX: N94.9 Unspecified condition associated with female genital organs and menstrual cycle (principal); N83.202 Unspecified ovarian cyst, left side
CPT/HCPCS: 76856

== ENCOUNTER → 2022-05-03 13:50 | Outpatient (CLI) | payer MEDICARE, SELFPAY ==
--- NOTE | ~2022-05-03 | MM_ITS ---
EXAMINATION: MM screening ailin BI w franchesca HISTORY: Screening TECHNIQUE: Craniocaudal and mediolateral oblique 3-D tomosynthesis images were obtained and synthetic 2-D images were generated. CAD analysis was submitted and interpreted. COMPARISON: Comparison to multiple prior studies sequentially, with oldest reviewed study dated 11/24. BREAST PARENCHYMAL COMPOSITION: There are scattered areas of fibroglandular density. FINDINGS: There is no evidence of suspicious mass, calcification, or architectural distortion to sugg est malignancy in either breast. There has been no suspicious interval change. IMPRESSION: 1. No mammographic evidence of malignancy. 2. Recommend routine screening mammography in one year. BI-RADS Category 1: Negative Reviewed, dictated and finalized at location A.
== END ==
PROVIDERS: PCP Family Medicine; Visit Provider Nurse Practitioner
DX: Z12.31 Encounter for screening mammogram for malignant neoplasm of breast (principal)
CPT/HCPCS: 77063; 77067

== ENCOUNTER → 2022-07-19 12:24 | Outpatient (CLI) | payer MEDICARE, SELFPAY ==
--- NOTE | ~2022-07-19 | DEXA_ITS ---
Bone Density Report Name: HUBER HORNE Age: 72 Sex: Female Ethnicity: White Date of : 1950 Indication: osteopenia; monitoring treatment; prior fracture; postmenopausal Referring Provider: BETO, CHARLES Study: Bone densitometry was performed. Exam Date: July 19, 2022 Accession number: [id number] Bone Density: Region BMD T-score Z-score Classification AP Spine (L1-L4) 0.900 -1.3 0.9 Osteopenia Femoral Neck (Left) 0.653 -1.8 0.2 Osteopenia Total Hip (Left) 0.870 -0.6 1.0 Normal Femoral Neck (Right) 0.676 -1.6 0.4 Osteopenia Total Hip (Right) 0.898 -0.4 1.3 Normal Total Hip Mean 0.884 -0.5 1.2 Normal World Health Organization criteria for BMD impression classify patients as: Normal (T-score at or above -1.0), Osteopenia (T-score between -1.0 and -2.5), or Osteoporosis (T-score at or below -2.5). 10-year Fracture Risk: FRAX not reported because: Treated for osteoporosis Previous Exams: Region Exam Age BMD T-score BMD Change BMD Change Date g/cm2 vs Baseline vs Previous AP Spine(L1-L4) 07/19/2022 72 0.900 -1.3 0.041* 0.044* 12/02/2019 69 0.855 -1.7 -0.004 -0.001 11/13/2017 67 0.857 -1.7 -0.003 -0.003 11/02/2015 65 0.859 -1.7 Total Hip(Left) 07/19/2022 72 0.870 -0.6 0.044* 0.009 12/02/2019 69 0.861 -0.7 0.035* 0.018 11/13/2017 67 0.843 -0.8 0.017 0.017 11/02/2015 65 0.826 -1.0 Total Hip(Right) 07/19/2022 72 0.898 -0.4 0.046* 0.018 12/02/2019 69 0.881 -0.5 0.028* 0.008 11/13/2017 67 0.873 -0.6 0.020 0.020 11/02/2015 65 0.852 -0.7 *Denotes significance at 95% confidence level, LSC for AP Spine = 0.022 g/cm2, LSC for Total Hip = 0.027 g/cm2 Clinical Information Provided by Patient: Has had a low trauma fracture Is being treated for osteoporosis Has used the following medications: Boniva (i.e. ibandronate), Vitamin D, Calcium Patient maximum height was 62 Menopause Age: 45 Drinks caffeinated beverages Onset of menses at age 12 Number of children 2 Impression: The patient has low bone mass, based on the Left Femoral Neck T-score. The patient has risk factors, including: previous fracture. No significant bone loss was observed. Discussion: PATIENT UNDER TREATMENT WITH NO SIGNIFICANT BMD LOSS SINCE LAST EXA
== END ==
PROVIDERS: PCP Family Medicine; Visit Provider Nurse Practitioner
DX: M85.88 Other specified disorders of bone density and structure, other site (principal); M85.852 Other specified disorders of bone density and structure, left thigh; M85.851 Other specified disorders of bone density and structure, right thigh
CPT/HCPCS: 77080

== ENCOUNTER 2023-04-21 01:34 | Day surgery (SDC) | payer MEDICARE, SELFPAY ==
[2023-04-12 10:42] VITALS: BMI 26.2
--- NOTE | 2023-04-21 07:44 | WPDANESEPPF ---
Anes - Initial Pre Proc Eval Procedure: Operation Date: 04/21/23 09:30 Proposed Procedures p Esophagogastroduodenoscopy - Ronald Condon MD Date/Time: 04/21/23 07:44 Surgeon: Ronald Condon MD Pre Op Diagnosis: Gastritis Unspecified Without Bleeding Patient Data Age: 73 Gender: F Height: 1.57 m Weight: 65 kg Allergies Allergy/AdvReac Type Severity Reaction Status Date / Time Penicillins Allergy Mild rash and Verified 04/21/23 08:33 swelling Sulfa (Sulfonamide Allergy Mild rash and Verified 04/21/23 08:33 Antibiotics) swelling sulfamethizole Allergy Mild Rash Verified 04/21/23 08:33 trimethoprim Allergy Mild Rash Verified 04/21/23 08:33 Home Medications Medication Instructions Recorded Confirmed Type aspirin 81 mg tablet,delayed 81 mg PO DAILY 09/10/19 04/21/23 History release (Aspir-) atorvastatin 40 mg tablet 40 mg PO DAILY 09/10/19 04/21/23 History carvedilol 3.125 mg tablet 3.125 mg PO Q12H 09/10/19 04/21/23 History cholecalciferol (vitamin D3) 125 5,000 unit PO DAILY 09/10/19 04/21/23 History mcg (5,000 unit) tablet cetirizine 10 mg capsule (Zyrtec) 10 mg PO QPM 09/02/21 04/21/23 History fluoxetine 10 mg tablet 10 mg PO DAILY #90 tabs 04/10/23 04/21/23 Rx pantoprazole 40 mg tablet,delayed 40 mg PO QAM #90 tabs 04/10/23 04/21/23 Rx release calcium carbonate 500 mg-vitamin 1 tablet PO DAILY 04/12/23 04/21/23 History D3 10 mcg (400 unit) tablet (Calcium 500 + D) multivit-iron 18 mg-folic acid 400 1 tablet PO DAILY 04/12/23 04/21/23 History mcg-calcium 500 mg-minerals tablet (Daily Multiple For Women) vitamin B complex 1 cap PO DAILY 04/12/23 04/21/23 History Patient hx anesthesia problems: none Family hx anesthesia problems: none Results Review: All pre-operative results and documents have been reviewed as part of the pre-operative evaluation. [facility] Past Medical History Medical History Age-related nuclear cataract of both eyes CAD in [place] artery Choking Diverticulosis GERD (gastroesophageal reflux disease) History of [place] (myocardial infarction) correction current use of antithrombotics/antiplatelets Mixed hyperlipidemia PAD (peripheral artery disease) Stenosis of left subclavian artery Surgical History Surgical History History of carpal tunnel release Hx of cataract surgery Hx of colonoscopy 2020, repeat in 5 years Hx of esophagogastroduodenoscopy 2020 Stented coronary artery Family History Family History Father Hypertension Family history of chronic obstructive pulmonary disease Sibling Hypertension Family history of arthritis Family history of heart disease in male family member before age 55 Mother Acute myocardial infarction Social History Social History Social History: Smoking status: Never smoker Second hand tobacco smoke exposure: No Alcohol intake: current Alcohol use details: Rarely Substance use: never Substance use type: does not use Living arrangements: with family Occupation/Education: retired Gender identity (if verbalized by the patient): Female Sexual Orientation (if Verbalized by the Patient): Straight or Heterosexual Spiritual care concerns: No Anes - Eval Final PreProcedure Day of Procedure 04/21/23 07:44 Patient weight: overweight Heart: regular rate and rhythm Lungs: clear to auscultation Airway: Mallampati scale class II Neurological: alert and oriented Last oral intake: >/= 8 hours ASA classification: III Emergent: no Anesthetic plan: proceed Anesthesia type and monitoring: general GIVS and standard monitoring Results Review: All pre-operative results and documents have been reviewed as part of the pre-operative evaluat
[2023-04-21 08:35] VITALS: BP 139/59; PULSE 64; RESP 17; TEMP 36; O2SAT 99; BMI 25.9
[2023-04-21] MEDS: LACTATED RINGERS 1,000 ML 150 ML IV CONT (08:46)
--- NOTE | 2023-04-21 08:59 | PM.HPGS ---
History of Present Illness History of Present Illness Consent: Risks, benefits, and alternatives have been discussed and questions answered. Patient agrees to proceed with procedure. Chief complaint: Gastritis Unspecified Without Bleeding Narrative: Fanny Greer is a 73 year old female with mild reflux esophagitis and gastritis in 2020, lately with breakthrough but better with protonix. Review of Systems Constitutional: Constitutional: Denies headache(s) and Denies weakness Eyes: Eyes: Denies blurry vision ENT: Reports Normal hearing present, Denies headache(s) and Denies neck pain Cardiovascular: Cardiovascular: Denies chest pain and Denies dyspnea Respiratory: Respiratory: Denies dyspnea Gastrointestinal: Gastrointestinal: Reports no additional gastrointestinal complaints Genitourinary: Genitourinary: Denies dysuria Musculoskeletal: Musculoskeletal: Denies neck pain Integumentary/Breasts: Skin/Breast: Denies dry skin Neurologic: Reports Normal hearing present, Denies headache(s) and Denies weakness Psychiatric: Psychiatric: Denies anxiety Endocrine: Endocrine: Denies change in body appearance Hematologic/Lymphatic: Hematologic/Lymphatic: Denies easy bleeding Allergic/Immunologic: Allergic/Immunologic: Denies urticaria PMFSH Past Medical History Medical History Age-related nuclear cataract of both eyes CAD in [place] artery Choking Diverticulosis GERD (gastroesophageal reflux disease) 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 Mixed hyperlipidemia PAD (peripheral artery disease) Stenosis of left subclavian artery Surgical History Surgical History History of carpal tunnel release Hx of cataract surgery Hx of colonoscopy 2020, repeat in 5 years Hx of esophagogastroduodenoscopy 2020 Stented coronary artery Family History Family History Father Hypertension Family history of chronic obstructive pulmonary disease Sibling Hypertension Family history of arthritis Family history of heart disease in male family member before age 55 Mother Acute myocardial infarction Social History Social History Social History: Smoking status: Never smoker Second hand tobacco smoke exposure: No Alcohol intake: current Alcohol use details: Rarely Substance use: never Substance use type: does not use Living arrangements: with family Occupation/Education: retired Gender identity (if verbalized by the patient): Female Sexual Orientation (if Verbalized by the Patient): Straight or Heterosexual Spiritual care concerns: No Meds Home Medications and Allergies Home Medications Medication Instructions Recorded Confirmed Type aspirin 81 mg tablet,delayed 81 mg PO DAILY 09/10/19 04/21/23 History release (Aspir-) atorvastatin 40 mg tablet 40 mg PO DAILY 09/10/19 04/21/23 History carvedilol 3.125 mg tablet 3.125 mg PO Q12H 09/10/19 04/21/23 History cholecalciferol (vitamin D3) 125 5,000 unit PO DAILY 09/10/19 04/21/23 History mcg (5,000 unit) tablet cetirizine 10 mg capsule (Zyrtec) 10 mg PO QPM 09/02/21 04/21/23 History fluoxetine 10 mg tablet 10 mg PO DAILY #90 tabs 04/10/23 04/21/23 Rx pantoprazole 40 mg tablet,delayed 40 mg PO QAM #90 tabs 04/10/23 04/21/23 Rx release calcium carbonate 500 mg-vitamin 1 tablet PO DAILY 04/12/23 04/21/23 History D3 10 mcg (400 unit) tablet (Calcium 500 + D) multivit-iron 18 mg-folic acid 400 1 tablet PO DAILY 04/12/23 04/21/23 History mcg-calcium 500 mg-minerals tablet (Daily Multiple For Women) vitamin B complex 1 cap PO DAILY 04/12/23 04/21/23 History Allergies Allergy/AdvReac Type Severity Reaction Status Date / Time Penicillins Aller
[2023-04-21 09:15] VITALS: BP 128/67; PULSE 72; RESP 35; O2SAT 100
[2023-04-21 09:25] VITALS: BP 120/59; PULSE 67; RESP 19; O2SAT 100
[2023-04-21 09:35] VITALS: BP 116/71; PULSE 71; RESP 20; O2SAT 100
== END 2023-04-21 09:50 | disposition home or self-care (01) ==
PROVIDERS: PCP Family Medicine; Visit Provider Internal Medicine Gastroenterology
PROC: 0DJ08ZZ Inspection of Upper Intestinal Tract, Via Natural or Artificial Opening Endoscopic (ICD-10-PCS; CPT 43235; principal; 2023-04-21 09:30)
DX: K21.9 Gastro-esophageal reflux disease without esophagitis (principal); K22.2 Esophageal obstruction; I25.10 Atherosclerotic heart disease of native coronary artery without angina pectoris; I25.2 Old myocardial infarction; E78.2 Mixed hyperlipidemia; I73.9 Peripheral vascular disease, unspecified; Z95.5 Presence of coronary angioplasty implant and graft; Z79.82 Long term (current) use of aspirin
CPT/HCPCS: 43249; 43239; 88305; J2704; J7120

== ENCOUNTER → 2023-05-02 13:04 | Outpatient (CLI) | payer MEDICARE, SELFPAY ==
--- NOTE | ~2023-05-02 | US_ITS ---
EXAMINATION: US pelvic complete DATE: 05/02/2023 13:23 INDICATION: Ovarian cyst, postmenopausal TECHNIQUE: Multiple transabdominal and endovaginal sonographic images of the pelvis were obtained. COMPARISON: 02/24/2022 FINDINGS: The uterus measures 6.0 x 2.1 x 3.1 cm. The endometrial complex measures 6 mm. The right ov delma measures 2.3 x 1.2 x 2.2 cm. The left ovary measures 6.6 x 5.9 x 5.1 cm. There is a 6.1 x 5.1 x 4 .5 cm simple cyst of the left ovary which previously measured up to 5.6 cm. There is normal vascular flow in the ovaries. There is no free fluid in the pelvis. IMPRESSION: 1. Simple left ovarian cyst with minimal change. Follow-up ultrasound in 12 months is recommended. Reviewed, dictated and finalized at location L. IMPRESSION: 1. Simple left ovarian cyst with minimal change. Follow-up ultrasound in 12 mon ths is recommended.
== END ==
PROVIDERS: PCP Family Medicine; Visit Provider Nurse Practitioner
DX: N83.202 Unspecified ovarian cyst, left side (principal)
CPT/HCPCS: 76856

== ENCOUNTER 2023-06-27 13:42 | Outpatient (CLI) | payer MEDICARE, SELFPAY ==
--- NOTE | ~2023-06-27 | XR_ITS ---
EXAMINATION: XR chest 2V 06/27/2023 14:09 INDICATION: Cough PROCEDURE: 2 view chest COMPARISON: Comparison to multiple prior studies sequentially, with oldest reviewed study dated 11/19. FINDINGS: The lungs are clear. Calcified granulomas right lung base. There is a left subclavian arter y stent. The cardiomediastinal silhouette is within normal limits. There are no pleural effusions. There is no pneumothorax suspected. IMPRESSION: 1: NO ACUTE CARDIOPULMONARY DISEASE. Reviewed, dictated and finalized at location L.
== END 2023-06-27 13:43 | disposition home or self-care (01) ==
PROVIDERS: PCP Family Medicine; Visit Provider Physician Assistant
DX: R05.9 Cough, unspecified (principal)
CPT/HCPCS: 71046

== ENCOUNTER → 2023-07-11 12:55 | Outpatient (CLI) | payer MEDICARE, SELFPAY ==
--- NOTE | ~2023-07-11 | MM_ITS ---
EXAMINATION: MM screening ailin BI w franchesca HISTORY: Screening mammogram TECHNIQUE: Craniocaudal and mediolateral oblique 3-D tomosynthesis images were obtained and synthetic 2-D images were generated. CAD analysis was submitted and interpreted. COMPARISON: 05/03/2022, 02/18/2021 bilateral screening mammogram examinations BREAST PARENCHYMAL COMPOSITION: There are scattered areas of fibroglandular density. FINDINGS: There is no evidence of suspicious mass, calcification, or architectural distortion to sugg est malignancy in either breast. There has been no suspicious interval change. IMPRESSION: 1. No mammographic evidence of malignancy. 2. Recommend routine screening mammography in one year. BI-RADS Category 1: Negative Reviewed, dictated and finalized at location A.
== END ==
PROVIDERS: PCP Nurse Practitioner; Visit Provider Nurse Practitioner
DX: Z12.31 Encounter for screening mammogram for malignant neoplasm of breast (principal)
CPT/HCPCS: 77063; 77067

== ENCOUNTER 2023-11-20 11:35 | Outpatient (CLI) | payer MEDICARE, SELFPAY ==
--- NOTE | ~2023-11-20 | XR_ITS ---
Right Knee Technique: AP, lateral, and sunrise views were obtained. Clinical History: Pain Findings: No fracture or dislocation is seen. Osseous alignment is anatomic. Joint spaces are preserv ed without degenerative or erosive change. Soft tissues are unremarkable. No joint effusion is seen. Impression: Unremarkable right knee radiographs. Reviewed, dictated and finalized at location . ING CHECKER Impression: Unremarkable right knee radiographs.
== END 2023-11-20 11:36 | disposition home or self-care (01) ==
PROVIDERS: PCP Family Medicine; Visit Provider Physician Assistant
DX: M25.561 Pain in right knee (principal)
CPT/HCPCS: 73562

== ENCOUNTER 2024-05-29 13:43 | Outpatient (CLI) | payer MEDICARE, SELFPAY ==
--- NOTE | ~2024-05-29 | US_ITS ---
EXAMINATION: US pelvic complete INDICATION: Left ovarian cyst Comparison:No prior studies for comparison. TECHNIQUE: Multiple transabdominal sonographic images of the pelvis performed. FINDINGS: The uterus measures 6.1 x 2.6 x 4.1 cm. The endometrial complex measures 3 mm. The right ovary measures 1.9 x 1.6 x 0.9 cm and the left ovary measures 7.3 x 5.4 x 6.1 cm. There ar e small follicles in each ovary. There is a 6 cm left ovarian cyst. Normal doppler signal in both ova migdalia. There is no free fluid in the pelvis. There are no abnormal masses seen on either side. IMPRESSION: 1. Simple left ovarian cyst measuring 6 cm. Reviewed, dictated and finalized at location B.
== END 2024-05-29 13:44 ==
LOC: MICIMG 13:44
PROVIDERS: PCP Family Medicine; Visit Provider Nurse Practitioner
DX: N83.292 Other ovarian cyst, left side (principal)
CPT/HCPCS: 76856

== ENCOUNTER 2024-07-10 11:45 | Outpatient (CLI) | payer MEDICARE, SELFPAY ==
--- NOTE | ~2024-07-10 | US_ITS ---
EXAMINATION: US pelvic complete DATE: 07/10/2024 12:07 INDICATION: Left ovarian cyst TECHNIQUE: Multiple transabdominal sonographic images of the pelvis were obtained. COMPARISON: None. FINDINGS: The uterus measures 6.5 x 2.1 x 3.3 cm. The endometrial complex measures 3 mm in thickness. The righ t ovary is not visualized. The left ovary measures 7.2 x 5.9 x 5.7 cm and contains a 6.0 cm simple ap pearing anechoic cyst. Vascular flow, likely ovarian cyst on color Doppler along the periphery of the cyst. There is no free fluid in the pelvis. IMPRESSION: 1. 6.0 cm simple appearing left ovarian cyst. Reviewed, dictated and finalized at location A.
== END 2024-07-10 11:46 | disposition home or self-care (01) ==
LOC: MICIMG 11:46
PROVIDERS: PCP Obstetrics & Gynecology Gynecology; Visit Provider Obstetrics & Gynecology Gynecology
DX: N83.202 Unspecified ovarian cyst, left side (principal)
CPT/HCPCS: 76856

== ENCOUNTER 2025-05-29 12:21 | Outpatient (CLI) | payer MEDICARE, SELFPAY ==
--- NOTE | ~2025-05-29 | DEXA_ITS ---
Bone Density Report Name: HUBER HORNE Age: 75 Sex: Female Ethnicity: White Date of : 1950 Indication: osteopenia; prior fracture; Referring Provider: UNA PUGA Study: Bone densitometry was performed. Exam Date: May 29, 2025 Accession number: [id number] Bone Density: Region BMD T-score Z-score Classification AP Spine(L1-L4) 0.876 -1.6 0.9 Osteopenia Femoral Neck (Left) 0.649 -1.8 0.3 Osteopenia Total Hip (Left) 0.831 -0.9 0.9 Normal Femoral Neck (Right) 0.681 -1.5 0.6 Osteopenia Total Hip (Right) 0.859 -0.7 1.1 Normal Total Hip Mean 0.845 -0.8 1.0 Normal World Health Organization criteria for BMD impression classify patients as: Normal (T-score at or above -1.0), Osteopenia (T-score between -1.0 and -2.5), or Osteoporosis (T-score at or below -2.5). 10-year Fracture Risk(1): Major Osteoporotic Fracture 18% Hip Fracture 3.8% Reported Risk Factors: [place] (), Neck BMD=0.649, BMI=28.1, previous fracture (1) FRAX(R) Version 3.08. Fracture probability calculated for an untreated patient. Fracture probability may be lower if the patient has received treatment. Previous Exams: -- Region Exam Age BMD T-score BMD Change BMD Change Date g/cm2 vs Baseline vs Previous -- AP Spine (L1-L4) 05/29/2025 75 0.876 -1.6 2.0% -2.6%* 07/19/2022 72 0.900 -1.3 4.7%* 5.2%* 12/02/2019 69 0.855 -1.7 -0.4% -0.1% 11/13/2017 67 0.857 -1.7 -0.3% -0.3% 11/02/2015 65 0.859 -1.7 Total Hip(Left) 05/29/2025 75 0.831 -0.9 0.7% -4.4%* 07/19/2022 72 0.870 -0.6 5.3%* 1.0% 12/02/2019 69 0.861 -0.7 4.2%* 2.1% 11/13/2017 67 0.843 -0.8 2.1% 2.1% 11/02/2015 65 0.826 -1.0 Total Hip(Right) 05/29/2025 75 0.859 -0.7 0.8% -4.4%* 07/19/2022 72 0.898 -0.4 5.4%* 2.0% 12/02/2019 69 0.881 -0.5 3.3%* 0.9% 11/13/2017 67 0.873 -0.6 2.4% 2.4% 11/02/2015 65 0.852 -0.7 -- *Denotes significance at 95% confidence level, LSC for AP Spine = 0.022 g/cm2, LSC for Total Hip = 0.027 g/cm2 Clinical Information Provided by Patient: Has had a low trauma fracture Has used the following medications: Boniva (i.e. ibandronate), Fosamax (i.e. alendronate), Vitamin D, Calcium Patient maximum height was 62 Menopause Age: 45 Drinks caffeinated beverages Onset of menses at age 11 Number of children 2 Missed period for more than 6 months in a row Impression: The patient has low bone mass, based on the Left Femoral Neck T-score. The patient has an estimated ten-year risk of hip fracture of 3.8% and an estimated ten-year risk of major fracture of 18%, based on the WHO FRAX algorithm. The patient has risk factors, including: previous fracture. The BMD for the AP Spine (L1-L4) decreased, changing by -2.6% since the last DXA exam. The BMD for the Total Hip(Left) decreased, changing by -4.4% since the last DXA exam. The BMD for the Total Hip(Right) decreased, changing by -4.4% since the last DXA exam. Discussion: BONE DENSITY IS LOW AT ONE OR MORE SKELETAL SITES. THE PATIENT'S BMD AND CLINICAL RISK FACTORS CONTRIBUTE TO THIS PATIENT'S INCREASED RISK OF FRACTURE. This patient's lowest T-score is low at one or more skeletal sites. It meets the World Health Organization's (WHO) criteria for ?low bone mass? (T-score between -1.0 and -2.5). The patient's 10-year risk of hip fracture as calculated by FRAX exceeds the threshold where pharmacological therapy is recommended by the National Osteoporosis Foundation (NOF). However, all treatment decisions require clinical judgment and consideration of individual patient factors, including patient preferences, comorbidities, previous drug use, risk factors not captured in the FRAX model (e.g., frailty, falls, vitamin D deficiency, increased bone turnover, interval significant decline in bone density) and possible under or overestimation of fracture risk by FRAX. The patient should follow a healthful lifestyle (good nutrition with adequate calcium and vitamin D, and appropriate weight-bearing exercise). Follow-Up: Consider a repeat BMD and Vertebral Fracture Assessment (VFA) exam in 2 years or sooner if medically necessary, to reassess this patient's status. Reported by: BINU on 05/29/2025 12:39:00 PM. Reviewed, dictated and finalized at location A.
== END 2025-05-29 12:22 | disposition home or self-care (01) ==
LOC: MICIMG 12:22
PROVIDERS: PCP Family Medicine; Visit Provider Obstetrics & Gynecology Gynecology
DX: M85.89 Other specified disorders of bone density and structure, multiple sites (principal); Z78.0 Asymptomatic menopausal state
CPT/HCPCS: 77080

== ENCOUNTER 2025-09-02 12:20 | Outpatient (CLI) | payer MEDICARE, SELFPAY ==
--- NOTE | ~2025-09-02 | US_ITS ---
EXAMINATION: US pelvic complete, 09/02/2025 13:03 CDT HISTORY: Left ovarian cyst Comparison: Comparison 07/10/2024. Technique: Benitez-scale and color Doppler images were obtained. Findings: Uterus: Uterus anteverted 6.1 x 2.5 x 3.4 cm. . Endometrium is thickened measuring 7 mm with a echogenic focus too small to characterize measuring 4 x 5 mm. Right Ovary:Right ovary not identified. Left Ovary: Left ovary 4.5 x 4.4 x 4.4 cm, there is a simple appearing cystic focus 3.6 x 3.8 cm which appears decreased in size compared to the previous exam. Free Fluid: None Impression: 1. Cystic left ovarian lesion noted previously has decreased in size probably a postmenopausal atrophic cyst. Cystic ovarian neoplasm is not excluded. 2. Abnormal thickening of the endometrium. Endometrial neoplasm should be considered Reviewed, dictated and finalized at location P. Impression: 1. Cystic left ovarian lesion noted previously has decreased in size probably a postmenopausal atrophic cyst. Cystic ovarian neoplasm is not excluded. 2. Abnormal thickening of the endometrium. Endometrial neoplasm should be consi dered
--- NOTE | ~2025-09-02 | MM_ITS ---
EXAMINATION: MM screening [facility] BI w franchesca HISTORY: Screening TECHNIQUE: Craniocaudal and mediolateral oblique 3-D tomosynthesis images were obtained and synthetic 2-D images were generated. CAD analysis was submitted and interpreted. COMPARISON: Comparison to multiple prior studies sequentially, with oldest reviewed study dated 12/02/2019. BREAST PARENCHYMAL COMPOSITION: Not dense: There are scattered areas of fibroglandular density. FINDINGS: There is a stable asymmetry in the upper central aspect of the right breast. There are benign bilateral breast calcifications. There is no evidence of suspicious mass, calcification, or architectural distortion to suggest malignancy in either breast. There has been no suspicious interval change. IMPRESSION: 1. No mammographic evidence of malignancy. 2. Recommend routine screening mammography in one year. BI-RADS Category 2: Benign finding(s). Reviewed, dictated and finalized at location B.
== END 2025-09-02 12:21 | disposition home or self-care (01) ==
PROVIDERS: PCP Family Medicine; Visit Provider Nurse Practitioner
DX: Z12.31 Encounter for screening mammogram for malignant neoplasm of breast (principal); N83.202 Unspecified ovarian cyst, left side
CPT/HCPCS: 76856; 77063; 77067

== ENCOUNTER 2025-09-22 01:20 | Day surgery (SDC) | payer MEDICARE, SELFPAY ==
--- NOTE | 2025-09-11 13:02 | PC.NURSE ---
[facility] has started construction of its new state of the art ER which will open Spring 2026. With this, we anticipate parking may be a challenge for some our surgical patients and families. Parking spaces are limited but are available for all Surgical, obstetrics, and ER patients sharing this lot. If you arrive and find you are having a hard time finding a parking space, please note that we understand the challenges, please drive around the hospital and park near Hospital Entrance 1. When you enter this entrance, you can ask a volunteer to direct or take you back to the surgical waiting area to check in. We appreciate everyone?s understanding of these expected challenges while we build for your future. Report to the Outpatient Waiting Room, entrance under the green pavilion located off [address], at time __6AM on date 09/22/25 . Planned Procedure Time: _7:30 AM .? Time changes happen often and if your time is changed the preop area will call you the afternoon before. - You and your visitor will be asked to self-screen and do not enter if you have any COVID symptoms. Please call surgeon if you need to reschedule. - A mask is optional within the hospital at this time. Patients may have clear liquids (water, carbonated beverages, clear teas, apple juice) until 3 hours prior to surgery ( 4:30 AM)with a maximum of 20 ounces. - No food from midnight until time of surgery and no smoking, or chewing tobacco (or any form of nicotine). No chewing gum, candy or mints. - Take only the following medications with a SIP of water on the morning of surgery: __CARVEDILOL,ESCITALOPRAM DO NOT STOP ANY OF YOUR OTHER PRESCRIPTION MEDICATIONS PRIOR TO SURGERY EXCEPT THE FOLLOWING Hold all vitamins and supplements for 3 days per anesthesiologist.LAST DOSE 09/18/25 Medications to discontinue per physician ASPIRIN PER DR PUGA Date to take last dose Please no make-up, nail [place] islander, hairspray, perfume, deodorant, or body powder the day of surgery.? No jewelry (including any body piercings) or valuables the day of surgery, leave them at home.? Please take a shower or bath the night before, or the morning of, surgery with an antibacterial soap.? Wear comfortable, loose fitting clothing.? Children are encouraged to wear pajamas. - Jewelry must be removed prior to entering the operating room.? Rings and piercings that are not removed may be cut off. - The hospital will not accept responsibility for valuables.? - Please leave all valuables, including medications, at home the day of surgery. If you are going home after surgery, a licensed long haul truck driver must drive you home.? - NO public transportation without another adult if you receive anesthesia. - We recommend that an adult stay with you for 24 hours following discharge. - We also recommend that you do not drive, make important decision, drink alcoholic beverages, or take any drugs that were not prescribed by your health care provider for at least 24 hours after your discharge time. For Pediatric surgeries, we recommend two adults accompany the child home. Follow any additional instructions given to you from your surgeon. Telephone instructions given to ___PATIENT and asked if any additional questions and then verbalized understanding. Patient advised to call surgeon office or pre surgery nurse liaison [phone] if any additional questions.
[2025-09-11 13:17] VITALS: BMI 27.2
--- OUTSIDE RECORDS SUMMARY | 2025-09-22 01:25 | XMS_ITS | Clinical Summary ---
Author Organization [facility] [address] Address [address] [place] [address] Care Team Providers Care Engineering Patternmaker Name Role Phone Ric Waldrop MD Primary Care Provider Allergies Active Allergy Reactions Criticality Noted Date Comments Penicillins Swelling,Rash Medium 12/13/2017 Sulfa (Sulfonamide Antibiotics) Swelling,Rash Medium 0 12/13/2017 Medications aspirin 81 mg tablet Take 1 tablet (81 mg total) by mouth daily Active cholecalcifero l (VITAMIN D-3) 5,000 unit capsule Take 1 capsule (5,000 Units total) by mouth daily Active cetirizine (ZyrTEC) 10 mg tablet Take 1 tablet (10 mg total) by mouth daily Active multivitamin-m in-121herb comb [id number] ub-rfn-sk-mg-m g capsule MULTIVITAMINS ORAL CAPSULE [address] (PROTONIX) 40 mg EC tablet Take 1 tablet (40 mg total) by mouth every morning 4 Active escitalopram (LEXAPRO) 10 mg tablet Take 0.5 tablets (5 mg total) by mouth daily Active vitamin b complex tablet Take 1 tablet by mouth daily Active calcium carbonate (CALCIUM 500 ORAL) Take by mouth Active nitroglycerin (NITROSTAT) 0.[address] 1 tablet (0.3 mg total) under the tongue every 5 (five) minutes as needed for chest pain May repeat dose q 5 min, up to 3 doses total 25 tablet 11 5 03/26/20 26 Active carvediloL (COREG) 3.125 mg tablet TAKE 1 TABLET BY MOUTH TWICE DAILY WITH MEALS 180 tablet 2 5 Active atorvastatin (LIPITOR) 40 mg tabletIndicati ons:Hyperlipid emia LDL goal <70 Take 1 tablet by mouth once daily 90 tablet 3 5 Active Active Problems Problem Noted Date Diagnosed Date LAWTON (dyspnea on exertion) 03/04/2021 Subclavian arterial stenosis 06/24/2020 Overview (06/24/2020): Added automatically from request for surgery [id number] Subclavian steal syndrome 05/20/2020 Left arm pain 08/23/2019 PAD (peripheral artery disease) 02/14/2019 Chest discomfort 11/19/2018 Left carotid bruit 03/28/[address] elevation myocardial infarction (S [place]) 12/13/2017 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 12/13/2017 Lipid screening 12/13/2017 Palpitations 12/13/2017 Family history of early CAD 12/13/2017 Hyperlipidemia LDL goal <70 12/13/2017 Nonrheumatic mitral valve regurgitation 12/13/19 18 Encounters Date Type Department Care Team Description 08/14/2025 10:30 AM CDT Office Visit [facility] [address] [place] [address] Neo Barboza MD Coronary artery disease of [place] artery [place] heart with stable angina pectoris (Primary Dx); Hyperlipidemia LDL goal <70; Nonrheumatic mitral valve regurgitation; PAD (peripheral artery disease) from Last 3 Months Surgical History Surgery Date Site/Laterality Comments CARDIAC CATHETERIZATION CARDIAC STENT PLACEMENT ORIF WRIST FRACTURE Medical History Medical History Date Comments Heart attack (HCC) Coronary artery disease Blockage of subclavian artery GERD (gastroesophageal reflux disease) Osteopenia Wrist fracture Family History Relation Name Status Comments Brother Alive Father Alive Mother Social History Tobacco Use Types Packs/Day Years Used Date Smoking Tobacco: Never Smokeless Tobacco: Never Tobacco Cessation:Counseling Given: Not Answered Alcohol Use Standard Drinks/Week Comments No 0 (1 standard drink = 0.6 oz pur e alcohol) Comments Unknown Sex and Gender Information Value Date Recorded Sex Assigned at Not on file 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 Gender Identity Not on file Sexual Orientation Not on file Last Filed Vital Signs Vital Sign Reading Time Taken Comments Blood Pressure 128/64 08/14/2025 10:22 AM CDT Pulse 72 08/14/2025 10:22 AM CDT Temperature 37.1 C (98.7 F) 07/10/2020 8:56 AM CDT Respiratory Rate 16 03/27/2025 8:10 AM CDT Oxygen Saturation 98% 08/14/2025 10:22 AM CDT Inhaled Oxygen Concentration - - Weight 67.1 kg (148 lb) 08/14/2025 10:22 AM CDT Height 157.5 cm (5' 2) 08/14/2025 10:22 AM CDT Body Mass Index 27.07 08/14/2025 10:22 AM CDT Plan of Treatment Health Maintenance Due Date Last Done Comments Colon Cancer Screening-Colonoscopy 1950 Depression Screening 1950 Hepatitis C Screening 1950 Osteoporosis Screening-Bone Density Scan 1950 Hepatitis B Screening 1968 Well Visit 65+ 2015 Fall Risk Assessment 03/04/2022 03/04/2021, 07/10/20 20 Covid-19 Vaccine (3 2024-2 6 season) 2025 01/07/2021, 12/10/2020 Influenza Vaccine (#1) 2025 9, 07/04/2018, 07/26/2017, Additional history exists DTaP/Tdap/Td Vaccine (2 - Td or Tdap) 10/05/2027 10/05/2017 Pneumococcal vaccine 65+ Completed 07/04/2018, 08/06 Zoster Vaccine Completed 01/04/2019, 05/08, 07/26/2017, Additional history exists Medical Devices Implanted Type Area Early Learning Teacher Device Identifier Shelf Expiration Date Model / Serial / Lot Med[employer]onic [employer] Visi-Pro 8mm 27mm 135cm Radiopaque Balloon Expand Radial Strength - [id number] Implanted:Qty: 1 on 07/10/2020 by Robinson Ribeiro MD at [facility] Stent Left: Subclavian [employer] 11/20/2022 [id number] / / Insurance MEDICARE [facility] MEDICARE [facility] [address] [address] [place] [phone] MEDICARE [facility] Care Teams Engineering Patternmaker Relationship Specialty Start Date End Date Ric Waldrop MD [address] [facility] [address] [facility] [address] [place] [address] PCP - General Family Medicine 03/27/25
--- OUTSIDE RECORDS SUMMARY | 2025-09-22 01:25 | XMS_ITS | Patient Health Record ---
Author Organization [facility] Address [address] [place] [address] Care Team Providers Care Forensic Identification Specialist Name Role Phone Wai Cristina Primary Care Provider Reason For Referral No Information Immunizations Vaccine Route Administration Date Status Comme nts COVID-19 Moderna 1ST IM Intramuscular 12/10/2020 Administered EUA date 0. Screening reviewed and consent signed. Patient tolerated well. COVID-19 Moderna 2nd IM Intramuscular 01/07/2021 Administered EUA date 0. Screening reviwed and consent signed. Patient tolerated well. Plan Of Treatment No Information Insurance Providers Payer Name Payer Address Payer Phone Subscriber Number Group Number Insured Name Patient Relationship to Insured Coverage Start Date Coverage End Date MEDICARE PART A [address] [place] [phone] [id number] Fanny Greer Self - patient is the insured 1
--- OUTSIDE RECORDS SUMMARY | 2025-09-22 01:25 | XMS_ITS | Encounter Summary ---
Author Organization [facility] Address [address] [place] [address] Care Team Providers Care Biomass Plant Technician Name Role Phone Jojo Germain MD Primary Care Provider Ric Waldrop MD Primary Care Provider Encounter Details Date Type Department Care Team (Late st Contact Info) Description 06/30/2018 Orders Only [facility] Health Information Management [address] [place] [id number] Scanning, Provider Social History Tobacco Use Types Packs/Day Years Used Date Smoking Tobacco: Never Smokeless Tobacco: Never Alcohol Use Standard Drinks/Week Comments No 0 (1 standard drink = 0.6 oz pur e alcohol) Comments Unknown Sex and Gender Information Value Date Recorded Sex Assigned at Not on file 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 Gender Identity Not on file Sexual Orientation Not on file documented as of this encounter Plan of Treatment Not on file documented as of this encounter Procedures Procedure Name Priority Date/Time Associated Diagnosis Comments SCAN - LABS 06/30/2018 documented in this encounter Results * SCAN - LABS (06/30/2018) Provider Scanning Final Result documented in this encounter Visit Diagnoses Not on filedocumented in this encounter Care Teams Biomass Plant Technician Relationship Specialty Start Date End Date Jojo Germain MD [address] [facility] [address] [place] [address] PCP - General Family Medicine 12/13/17 03/26/25 Ric Waldrop MD [address] [facility] [address] [facility] [address] [place] [address] PCP - General Family Medicine 03/27/25 documented as of this encounter
[2025-09-22 06:20] VITALS: BP 133/68; PULSE 71; RESP 18; TEMP 36.3; O2SAT 99
[2025-09-22] MEDS: LACTATED RINGERS 1,000 ML 30 ML IV CONT (06:30)
--- NOTE | 2025-09-22 06:34 | WPDANESEPPF ---
Anes - Initial Pre Proc Eval Procedure: Operation Date: 09/22/25 07:30 Proposed Procedures p Hysteroscopy Dilation and Curettage - Elis Levy MD Date/Time: 09/22/25 06:34 Surgeon: Elis Levy MD Pre Op Diagnosis: thickened endometrial lining Patient Data Age: 75 Gender: F Height: 1.57 m Weight: 67.6 kg Allergies Allergy/AdvReac Type Severity Reaction Status Date / Time Penicillins Allergy Mild rash and Verified 09/11/25 13:02 swelling Sulfa (Sulfonamide Allergy Mild rash and Verified 09/11/25 13:02 Antibiotics) swelling sulfamethizole Allergy Mild Rash Verified 09/11/25 13:02 trimethoprim Allergy Mild Rash Verified 09/11/25 13:02 Home Medications ?Medication ?Instructions ?Recorded ?Confirmed ?Type aspirin 81 mg tablet,delayed 81 mg PO DAILY 09/10/19 09/11/25 History release (Aspir-) atorvastatin 40 mg tablet 40 mg PO DAILY 09/10/19 09/11/25 History carvedilol 3.125 mg tablet 3.125 mg PO Q12H 09/10/19 09/11/25 History cholecalciferol (vitamin D3) 125 5,000 unit PO DAILY 09/10/19 09/11/25 History mcg (5,000 unit) tablet cetirizine 10 mg capsule (Zyrtec) 10 mg PO QPM 09/02/21 09/11/25 History calcium 500 mg (as 1 tablet PO DAILY 04/12/23 09/11/25 History carbonate)-vitamin D3 10 mcg (400 unit) tablet (Calcium 500 + D) multivit-iron 18 mg-folic acid 400 1 tablet PO DAILY 04/12/23 09/11/25 History mcg-calcium 500 mg-minerals tablet (Daily Multiple For Women) vitamin B complex 1 cap PO DAILY 04/12/23 09/11/25 History azelastine 137 mcg (0.1 %) nasal 137 mcg (0.137 mL) intranasal Q12H 06/20/23 09/11/25 Rx spray #30 mL tobramycin 0.3 % eye drops 2 drp EACH EYE Q4H #5 mL 08/09/23 09/11/25 Rx escitalopram oxalate 10 mg tablet See Rx Instructions .Route 04/16/25 09/11/25 Rx .COMPLEX #90 tabs pantoprazole 40 mg tablet,delayed See Rx Instructions .Route 06/19/25 09/11/25 Rx release .COMPLEX #90 tabs Patient hx anesthesia problems: none Family hx anesthesia problems: none Results Review: All pre-operative results and documents have been reviewed as part of the pre-operative evaluation. 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 of antithrombotics/antiplatelets Mixed hyperlipidemia History of CO (myocardial infarction) Surgical History Surgical History Hx of esophagogastroduodenoscopy 2020 Hx of colonoscopy 2020, repeat in 5 years History of carpal tunnel release Hx of cataract surgery Stented coronary artery Family History Family History Father Hypertension Family history of chronic obstructive pulmonary disease Sibling Hypertension Family history of arthritis Family history of heart disease in male family member before age 55 Mother Acute myocardial infarction Social History Social History Social History: Smoking status: Never smoker Second hand tobacco smoke exposure: No Alcohol intake: current Alcohol use details: Rarely Substance use: never Substance use type: does not use Lack of Transportation: No Lack of Food: Never True Current Housing: I Have Housing Concerned About Future Housing: No Difficulty Paying Gas/Electric Bills: No Difficulty Paying for Meds: No Currently Unemployed: YES Education: Don't Know Difficulty w/ Childcare or Family Care: No Living arrangements: with family Occupation/Education: retired Gender identity (if verbalized by the patient): Female Sexual Orientation (if Verbalized by the Patient): Straight or Heterosexual Spiritual care concerns: No Anes - Eval Final PreProcedure Day of Procedure 09/22/25 06:34 Patient weight: overweight Heart: regular rate and rhythm Lungs: clear to auscultation Airway: Mallampati scale class II Neurological: alert and oriented Last oral intake: >/= 8 hours ASA classification: III Emergent: no Anesthetic plan: proceed Anesthesia type and monitoring: general GIVS and standard monitoring Results Review: All pre-operative results and documents have been reviewed as part of the pre-operative evaluation. Informed Consent: The patient's anesthetic plan and its attendant risks and benefits were discussed with the patient/family/POA. Questions were solicited and answers provided to the satisfaction of the patient/family/POA.
[2025-09-22] MEDS: ACETAMINOPHEN 500 MG TABLET 1000 MG PO (06:35)
--- NOTE | 2025-09-22 07:20 | WPDHPUPDATE1 ---
History and Physical Update Update Date/Time: 09/22/25 07:20 History and Physical has been reviewed, including an updated exam of the patient. There are NO changes in the patient's condition. Risks, benefits, and alternatives have been discussed and questions answered. Patient agrees to proceed with procedure.
--- NOTE | 2025-09-22 07:20 | PM.HPGS ---
History of Present Illness History of Present Illness Consent: Risks, benefits, and alternatives have been discussed and questions answered. Patient agrees to proceed with procedure. Chief complaint: thickened endometrial lining Narrative: Fanny Greer is a 75 year old female with ultrasound showing a thickened endometrium at 7mm. Patient denies vaginal bleeding. It was recommended to undergo D&C hysteroscopy to further evaluate. Risks of infection, bleeding, perforation, and possible pathology are reviewed. Patient voices understanding and agrees to proceed. 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 intermediate current use of antithrombotics/antiplatelets Mixed hyperlipidemia History of [place] (myocardial infarction) Surgical History Surgical History (Updated 09/22/25 @ 07:23 by Elis Levy MD) History of bilateral tubal ligation History of surgery on left wrist Fracture 2007 Hx of esophagogastroduodenoscopy 2020 Hx of colonoscopy 2020, repeat in 5 years History of carpal tunnel release Hx of cataract surgery Stented coronary artery Family History Family History Father Hypertension Family history of chronic obstructive pulmonary disease Sibling Hypertension Family history of arthritis Family history of heart disease in male family member before age 55 Mother Acute myocardial infarction Social History Social History Social History: Smoking status: Never smoker Second hand tobacco smoke exposure: No Alcohol intake: current Alcohol use details: Rarely Substance use: never Substance use type: does not use Lack of Transportation: No Lack of Food: Never True Current Housing: I Have Housing Concerned About Future Housing: No Difficulty Paying Gas/Electric Bills: No Difficulty Paying for Meds: No Currently Unemployed: YES Education: Don't Know Difficulty w/ Childcare or Family Care: No Living arrangements: with family Occupation/Education: retired Gender identity (if verbalized by the patient): Female Sexual Orientation (if Verbalized by the Patient): Straight or Heterosexual Spiritual care concerns: No Meds Home Medications and Allergies Home Medications ?Medication ?Instructions ?Recorded ?Confirmed ?Type aspirin 81 mg tablet,delayed 81 mg PO DAILY 09/10/19 09/22/25 History release (Aspir-) atorvastatin 40 mg tablet 40 mg PO DAILY 09/10/19 09/22/25 History carvedilol 3.125 mg tablet 3.125 mg PO Q12H 09/10/19 09/22/25 History cholecalciferol (vitamin D3) 125 5,000 unit PO DAILY 09/10/19 09/22/25 History mcg (5,000 unit) tablet cetirizine 10 mg capsule (Zyrtec) 10 mg PO QPM 09/02/21 09/22/25 History calcium 500 mg (as 1 tablet PO DAILY 04/12/23 09/22/25 History carbonate)-vitamin D3 10 mcg (400 unit) tablet (Calcium 500 + D) multivit-iron 18 mg-folic acid 400 1 tablet PO DAILY 04/12/23 09/22/25 History mcg-calcium 500 mg-minerals tablet (Daily Multiple For Women) vitamin B complex 1 cap PO DAILY 04/12/23 09/22/25 History azelastine 137 mcg (0.1 %) nasal 137 mcg (0.137 mL) intranasal Q12H 06/20/23 09/22/25 Rx spray #30 mL tobramycin 0.3 % eye drops 2 drp EACH EYE Q4H #5 mL 08/09/23 09/22/25 Rx escitalopram oxalate 10 mg tablet See Rx Instructions .Route 04/16/25 09/22/25 Rx .COMPLEX #90 tabs pantoprazole 40 mg tablet,delayed See Rx Instructions .Route 06/19/25 09/22/25 Rx release .COMPLEX #90 tabs Allergies Allergy/AdvReac Type Severity Reaction Status Date / Time Penicillins Allergy Mild rash and Verified 09/22/25 06:50 swelling Sulfa (Sulfonamide Allergy Mild rash and Verified 09/22/25 06:50 Antibiotics) swelling sulfamethizole Allergy Mild Rash Verified 09/22/25 06:50 trimethoprim Allergy Mild Rash Verified 09/22/25 06:50 Vital Signs Vital Signs - 24 hr 09/22/25 06:20 Temperature 97.3 F L Pulse Rate 71 Respiratory Rate 18 Blood Pressure 133/68 Pulse Oximetry 99 Oxygen Delivery Room Air Exam Const: General: healthy appearing and alert Orientation/consciousness: patient oriented x3 Resp: Effort & Inspection: normal respiratory effort GI: GI Palp: Yes Soft to palpation, No Tenderness to palpation present (GI) and No Palpable mass present : External Female Exam: normal external appearance Speculum Exam - Vagina: normal appearance of the vagina and normal vaginal discharge Speculum Exam - Cervix: normal appearance of the cervix Bimanual exam- vagina & uterus: uterine size normal and consistency normal Bimanual Exam- Adnexa, other: normal adnexae and No adnexal tenderness Neuro: General: patient oriented x3 Assessment and Plan Assessment and plan (1) Thickened endometrium: Code(s): R93.89 - Abnormal findings on diagnostic imaging of other specified body structures Status: Acute Assessment and Plan: Plan to proceed with D&C hysteroscopy
--- NOTE | 2025-09-22 07:45 | S_PTH ---
PATIENT: Fanny Greer LOC: [facility] U#:[id number] AGE/SX: 75/F ROOM: RE09/22/[address]: Elis Levy MD : 1950 BED: DIS: 09/22/2025 SPEC #: [id number] RECD: 09/22/25 09:08 STATUS: MARK RE #: [id number] EDITH: 09/22/25 07:[address]: Elis Levy DEPT: [facility] Surgical RECD BY: Tamiko Mtz ENTERED: 09/22/25 09:09 SP TYPE: Surgical OTHR DR: Ric Waldrop MD Tissues: A - Endometrial Curettings Procedures: Hematoxylin and Eosin Stain Gross and Microscopic Level 4
--- NOTE | 2025-09-22 07:50 | W.PM.PROC2 ---
Procedure Note - Detailed Date of Procedure 09/22/25 Pre-op Diagnosis thickened endometrial lining Post-op Diagnosis Same Procedure Performed D&C hysteroscopy Surgeon Elis Levy MD Anesthesia MAC Findings The cervix is very stenotic. The uterus sounds to 6 cm. The endometrium appears atrophic. There is a small cystic lesion left sidewall. Description of Procedure The patient was taken to the operating room and placed under anesthesia in the dorsal lithotomy position. She was prepped and draped in the usual sterile fashion. [place] speculum was placed in the vagina and the cervix grasped on the anterior lip with tenaculum. The cervix has a small divot where the os should be. The small dilator would not enter. The scalpel was used to katya-cross the os. Thick mucus returned. The uterus is sounded to 6cm. The diagnostic hysteroscope was placed and with the above-stated findings the small Aveta resection device was opened and placed. Under direct visualization the cystic lesion was removed in its entirety. The hysteroscope was removed. The endometrium was curetted with a sharp curette until a good uterine cry was noted in all areas. Minimal material was obtained consistent with the atrophic appearance. Instruments are removed. Sponge, needle, and instrument counts are correct per the OR staff. The patient was taken to recovery in stable condition. Estimated Blood Loss 5 Drains No Packing No Pathology Yes (Endometrial curettings and shavings) Complications No immediate complications Condition Stable Disposition PACU
[2025-09-22 07:52] VITALS: BP 139/56; PULSE 61; RESP 14; O2SAT 96
--- NOTE | 2025-09-22 07:58 | SUR.OPER ---
fluid deficit 90
[2025-09-22 08:20] VITALS: BP 150/64; PULSE 61; RESP 14
[2025-09-22 08:50] VITALS: BP 150/62; PULSE 62; RESP 15
== END 2025-09-22 08:54 | disposition home or self-care (01) ==
PROVIDERS: PCP Family Medicine; Visit Provider Obstetrics & Gynecology Gynecology
PROC: 0U5B8ZZ Destruction of Endometrium, Via Natural or Artificial Opening Endoscopic (ICD-10-PCS; CPT 58563; principal; 2025-09-22 07:30)
DX: R93.89 Abnormal findings on diagnostic imaging of other specified body structures (principal); I25.10 Atherosclerotic heart disease of native coronary artery without angina pectoris; K21.9 Gastro-esophageal reflux disease without esophagitis; E78.2 Mixed hyperlipidemia; I73.9 Peripheral vascular disease, unspecified; I25.2 Old myocardial infarction
CPT/HCPCS: 58558; 88305; A9270; J1100; J2003; J2250; J2405; J2704; J3010; J7120